=== PATIENT | male | born 1980 | race African-American/Black ===

== ENCOUNTER 2021-03-06 15:38 | Emergency (ER) | payer OTHER ==
[~2021-03-06] VITALS: Ht 177.8 cm; Wt 72.6 kg
[2021-03-06] MEDS ORDERED: AMOXICILLIN 50500 MG PO (16:06)
[2021-03-06] MEDS ORDERED: HYDROCODON-ACE1 EAC7 PO (16:06)
[2021-03-06 16:11] VITALS: BP 118/79
== END 2021-03-06 16:12 | disposition home or self-care (01) ==
LOC: M.ERS 15:38
DX: K08.89 Other specified disorders of teeth and supporting structures (principal)